=== PATIENT | male | born 1980 | race Caucasian/White ===

== ENCOUNTER 2017-06-17 19:02 | Inpatient (IN) | payer SELFPAY ==
[~2017-06-17] VITALS: Ht 170.2 cm; Wt 63.3 kg
[2017-06-17 19:02] VITALS: BP 115/84; PULSE 139; RESP 20; TEMP 98.7; O2SAT 99
[2017-06-17] MEDS ORDERED: SODIUM CHLOR 0.9% 1000 ML INJ 1,000 ML IV ONE ×4 (19:15→21:15)
[2017-06-17 19:28] LABS: AUTOMATED NEUTROPHIL # 8.8 TH/MM3 (1.8-7.7); BASOPHIL # 0.3 TH/MM3 (0-0.2); BASOPHIL % 2.6 % (0.0-2.0); HEMATOCRIT 51.7 % (39.0-51.0); LYMPH % 8.9 % (9.0-44.0); MEAN CELL VOLUME 89.5 FL (80.0-100.0); MEAN CORPUSCULAR HEMOGLOBIN 31.1 PG (27.0-34.0); MEAN CORPUSCULAR HGB CONC 34.7 % (32.0-36.0); MONO % 9.7 % (0.0-8.0); NEUT % 78.8 % (16.0-70.0); PLATELET COUNT 278 TH/MM3 (150-450); RED BLOOD COUNT 5.78 MIL/MM3 (4.50-5.90); WHITE BLOOD COUNT 11.2 TH/MM3 (4.0-11.0)
[2017-06-17 19:34] LABS: CHLORIDE 99 MEQ/L (98-107); HEMO FLAGS DIFF FINAL; POTASSIUM 3.8 MEQ/L (3.5-5.1); SODIUM (NA) 135 MEQ/L (136-145)
[2017-06-17 19:38] LABS: ANION GAP 12 MEQ/L (5-15); BICARBONATE 23.8 MEQ/L (21.0-32.0); BLOOD UREA NITROGEN 39 MG/DL (7-18)
[2017-06-17 19:41] LABS: ALT (GPT) 35 U/L (12-78); AST (GOT) 53 U/L (15-37); GLOMERULAR FILTRATION RATE 32 ML/MIN (>89)
[2017-06-17 19:44] LABS: ALKALINE PHOSPHATASE 66 U/L (45-117)
[2017-06-17 19:55] LABS: CREATINE KINASE 1369 U/L (39-308)
[2017-06-17 20:05] VITALS: BP 142/85; PULSE 112; RESP 18; O2SAT 96
--- NOTE | 2017-06-17 20:08 | PD ---
HPI Chief Complaint: Numbness/Tingling Time Seen by Provider: 19:12 Travel History International Travel<30 days: No Contact w/Intl Traveler<30days: No Traveled to known affect area: No History of Present Illness HPI This 37-year-old male presents by ambulance. He says he was cramping all over his body. He was working in the heat. 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 He started cramping around 10:00 this morning but tried to keep working. He was drinking a bit but he has not urinated once today. He has a history of ADHD and he says he takes Seroquel. PFSH Past Medical History Heart Rhythm Problems: Yes (SVT WHILE ON COCAINE) Cardiovascular Problems: Yes Diminished Hearing: No Inguinal Hernia: Yes Medical other: Yes (meningitis in 1996) Myocardial Infarction: Yes ([place] 2003) Tetanus Vaccination: Unknown Influenza Vaccination: No Past Surgical History Surgical History: No Previous Surgery Other Surgery: Yes (STOMACH SURGERY) Social History Alcohol Use: No Tobacco Use: Yes (1 ppd) Substance Use: Yes (cocaine, meth, marijuana - unable to recall last use; hx smoke crack) Allergies-Medications (Allergen,Severity, Reaction): Coded Allergies: No Known Allergies (Verified , 06/17/17) Reported Meds & Prescriptions Reported Meds & Active Scripts Active No Active Prescriptions or Reported Medications Review of Systems General / Constitutional: No: Fever, Chills Eyes: No: Diploplia, Blurred Vision HENT: Positive: Lightheadedness, No: Headaches Cardiovascular: No: Chest Pain or Discomfort Respiratory: Positive: Shortness of Breath Gastrointestinal: Positive: Nausea Genitourinary: Positive: Decreased Urinary Output Musculoskeletal: Positive: Myalgias, Arthralgias Skin: No Rash, No Itching Neurologic: Positive: Weakness, Dizziness Hematologic/Lymphatic: No: Easy Bruising Physical Exam Narrative GENERAL: Well-developed male. Heart rate initially 140 SKIN: Focused skin assessment warm/dry. HEAD: Atraumatic. Normocephalic. EYES: Pupils equal and round. No scleral icterus. No injection or drainage. ENT: No nasal bleeding or discharge. Mucous membranes dry NECK: Trachea midline. No JVD. CARDIOVASCULAR: Regular rate and rhythm. No murmur appreciated. RESPIRATORY: No accessory muscle use. Clear to auscultation. Breath sounds equal bilaterally. GASTROINTESTINAL: Abdomen soft, non-tender, nondistended. Hepatic and splenic margins not palpable. MUSCULOSKELETAL: No obvious deformities. No clubbing. No cyanosis. No edema. NEUROLOGICAL: Awake and alert. No obvious cranial nerve deficits. Motor grossly within normal limits. Normal speech. PSYCHIATRIC: Appropriate mood and affect; insight and judgment normal. Data Data Last Documented VS Vital Signs Date Time Temp Pulse Resp B/P Pulse Ox O2 Delivery O2 Flow Rate FiO2 06/17/17 19:02 98.7 139 20 115/84 99 Orders Complete Blood Count With Diff (06/17/17 19:12) Comprehensive Metabolic Panel (06/17/17 19:12) Creatine Kinase (Cpk) (06/17/17 19:12) Troponin I (06/17/17 19:12) Urinalysis - C+S If Indicated (06/17/17 19:12) Sodium Chlor 0.9% 1000 Ml Inj (Ns 1000 M (06/17/17 19:15) Sodium Chlor 0.9% 1000 Ml Inj (Ns 1000 M (06/17/17 19:15) Sodium Chlor 0.9% 1000 Ml Inj (Ns 1000 M (06/17/17 19:45) Drug Screen, Random Urine (06/17/17 19:44) CKMB (06/17/17 19:10) CKMB% (06/17/17 19:10) Labs Laboratory Tests Test 06/17/17 19:10 White Blood Count 11.2 TH/MM3 Red Blood Count 5.78 MIL/MM3 Hemoglobin 17.9 GM/DL Hematocrit 51.7 % Mean Corpuscular Volume 89.5 FL Mean Corpuscular Hemoglobin 31.1 PG Mean Corpuscular Hemoglobin 34.7 % Concent Red Cell Distribution Width 13.0 % Platelet Count 278 TH/MM3 Mean Platelet Volume 7.9 FL Neutrophils (%) (Auto) 78.8 % Lymphocytes (%) (Auto) 8.9 % Monocytes (%) (Auto) 9.7 % Eosinophils (%) (Auto) 0.0 % Basophils (%) (Auto) 2.6 % Neutrophils # (Auto) 8.8 TH/MM3 Lymphocytes # (Auto) 1.0 TH/MM3 Monocytes # (Auto) 1.1 TH/MM3 Eosinophils # (Auto) 0.0 TH/MM3 Basophils # (Auto) 0.3 TH/MM3 CBC Comment DIFF FINAL Differential Comment Sodium Level 135 MEQ/L Potassium Level 3.8 MEQ/L Chloride Level 99 MEQ/L Carbon Dioxide Level 23.8 MEQ/L Anion Gap 12 MEQ/L Blood Urea Nitrogen 39 MG/DL Creatinine 2.30 MG/DL Estimat Glomerular Filtration 32 ML/MIN Rate Random Glucose 121 MG/DL Calcium Level 8.9 MG/DL Total Bilirubin 1.0 MG/DL Aspartate Amino Transf 53 U/L (AST/SGOT) Alanine Aminotransferase 35 U/L (ALT/SGPT) Alkaline Phosphatase 66 U/L Total Creatine Kinase 1369 U/L Troponin I LESS THAN 0.02 NG/ML Total Protein 8.6 GM/DL Albumin 4.7 GM/DL [facility] Medical Decision Making Medical Screen Exam Complete: Yes Emergency Medical Condition: Yes Medical Record Reviewed: Yes Differential Diagnosis Differential includes heat cramps, dehydration, exhaustion Narrative Course Patient has been started on IV fluids. His BUNs is come back at 39 with creatinine of 2.3. He has no known history of kidney illness. His CPK is 1369 Diagnosis Primary Impression: Dehydration Additional Impressions: Acute kidney injury Rhabdomyolysis Qualified Code: M62.82 - Non-traumatic rhabdomyolysis Scripts No Active Prescriptions or Reported Meds Aiden Jose MD Jun 17, 2017 20:08
[2017-06-17 20:09] LABS: CKMB 7.2 NG/ML (0.5-3.6)
[2017-06-17 21:15] VITALS: BP 131/80; PULSE 114; RESP 17; TEMP 98.5; O2SAT 96
[2017-06-17 21:19] LABS: BLOOD, URINE SMALL (NEG); GLUCOSE,URINE NEG (NEG); KETONE, URINE TRACE mg/dL (NEG); NITRITE,URINE NEG (NEG); PH, URINE 5.5 (5.0-8.5)
[2017-06-17 21:21] LABS: URINE COLOR AMBER (YELLW/STRAW)
[2017-06-17 21:25] LABS: MUCUS URINE FEW /lpf (OCC); WHITE BLOOD CELL CAST, URINE 0-2 /lpf
[2017-06-17 21:26] LABS: BACTERIA, URINE FEW /hpf; COMMENT (UR) CULT NOT INDICATED; CULTURE IF INDICATED CULT NOT INDICATED; RBC, URINE 0-3 /hpf (0-3); SQUAMOUS EPITHELIAL CELL URINE 0-5 /hpf (0-5)
[2017-06-17] MEDS ORDERED: SENNOSIDES 8.6 MG TAB PO PRN (21:45)
[2017-06-17] MEDS ORDERED: SODIUM CHLORIDE 0.9% FLUSH 10 ML FLUSH IV FLUSH PRN (21:45)
[2017-06-17] MEDS ORDERED: ACETAMINOPHEN 325 MG TAB PO PRN (21:45)
[2017-06-17] MEDS ORDERED: MAGNESIUM HYDROXIDE SUSP 30 ML CUP PO PRN (21:45)
[2017-06-17] MEDS ORDERED: BISACODYL 10 MG SUPP RECTAL PRN (21:45)
[2017-06-17] MEDS ORDERED: MORPHINE SULFATE 4 MG/ML INJ IV PRN (21:45)
[2017-06-17] MEDS ORDERED: ACETAMINOPHEN/HYDROcodone 325 MG/5 MG TAB PO PRN (21:45)
[2017-06-17] MEDS ORDERED: LACTULOSE SYRUP 20 GM/30 ML CUP PO PRN (21:45)
[2017-06-17] MEDS ORDERED: ONDANSETRON HCL 4 MG/2 ML VIAL IVP PRN (21:45)
[2017-06-17] MEDS: SODIUM CHLOR 0.9% 1000 ML INJ 1,000 ML IV SCH (22:04)
[2017-06-17 23:33] VITALS: BP 131/70; PULSE 111; RESP 18; O2SAT 96
[2017-06-18 00:20] LABS: CREATINE KINASE 1219 U/L (39-308)
[2017-06-18 00:32] LABS: CKMB 8.6 NG/ML (0.5-3.6)
[2017-06-18 01:51] VITALS: BP 135/92; PULSE 105; RESP 16; TEMP 98.7; O2SAT 96
[2017-06-18] MEDS: SODIUM CHLOR 0.9% 1000 ML INJ 1,000 ML IV SCH ×2 (04:18→09:43)
[2017-06-18 04:54] VITALS: BP 130/87; PULSE 100; RESP 18; TEMP 98.3; O2SAT 98
[2017-06-18 07:09] LABS: AUTOMATED NEUTROPHIL # 3.8 TH/MM3 (1.8-7.7); BASOPHIL % 0.6 % (0.0-2.0); EOSINOPHIL # 0.1 TH/MM3 (0-0.4); HEMATOCRIT 40.1 % (39.0-51.0); HEMO FLAGS DIFF FINAL; LYMPH % 27.2 % (9.0-44.0); LYMPHOCYTE # 1.8 TH/MM3 (1.0-4.8); MEAN CELL VOLUME 90.8 FL (80.0-100.0); MEAN CORPUSCULAR HEMOGLOBIN 31.5 PG (27.0-34.0); MEAN CORPUSCULAR HGB CONC 34.7 % (32.0-36.0); NEUT % 58.2 % (16.0-70.0); PLATELET COUNT 195 TH/MM3 (150-450); RED BLOOD COUNT 4.42 MIL/MM3 (4.50-5.90); RED CELL DISTRIBUTION WIDTH 13.1 % (11.6-17.2); WHITE BLOOD COUNT 6.5 TH/MM3 (4.0-11.0)
[2017-06-18 07:41] LABS: ALKALINE PHOSPHATASE 41 U/L (45-117); ALT (GPT) 27 U/L (12-78); ANION GAP 7 MEQ/L (5-15); AST (GOT) 47 U/L (15-37); BICARBONATE 23.2 MEQ/L (21.0-32.0); BLOOD UREA NITROGEN 26 MG/DL (7-18); CALCIUM-PROTEIN CORRECTED 8.2 MG/DL (8.5-10.1); CHLORIDE 111 MEQ/L (98-107); GLOMERULAR FILTRATION RATE 102 ML/MIN (>89); SODIUM (NA) 141 MEQ/L (136-145)
[2017-06-18 07:55] LABS: CREATINE KINASE 1133 U/L (39-308)
[2017-06-18 08:21] LABS: CKMB 9.5 NG/ML (0.5-3.6)
[2017-06-18 08:22] VITALS: BP 121/80; PULSE 81; RESP 19; TEMP 98.7; O2SAT 94
[2017-06-18] MEDS ORDERED: SODIUM CHLORIDE 0.9% FLUSH 10 ML FLUSH IV FLUSH SCH (09:00)
[2017-06-18] MEDS ORDERED: DOCUSATE SODIUM 50 MG/SENNA 8.6 MG TAB PO SCH (09:00)
[2017-06-18] MEDS ORDERED: HEPARIN SODIUM - SQ 10,000 UNITS/ML VIAL SQ SCH (09:00)
--- NOTE | 2017-06-18 10:57 | HHI.HP ---
[facility] Service [facility] Primary Care Physician No Primary Care Physician Admission Diagnosis DEHYDRATION, ACUTE KIDNEY INJURY Diagnoses: (1) Rhabdomyolysis Diagnosis: Principal (2) Acute kidney injury Diagnosis: Principal (3) Polysubstance abuse Diagnosis: Principal Chief Complaint: Arm and hand cramping and pain Travel History International Travel<30 Days: No Contact w/Intl Traveler <30 Da: No Traveled to Known Affected Are: No History of Present Illness Written by Sharad Diaz, acting as scribe for Dr. Simms on 06/18/17 at 10 :45. 37-year-old male with known history of arrhythmia, meningitis, myocardial infarction, ADHD, IV drug use, polysubstance abuse who presented to hospital because of one day history of muscle cramps. When asking the patient was taken to the hospital he states that he came because he was dehydrated had to specifically ask symptoms in order to get him to elicit any symptoms otherwise he is here the hospital. His veins problem states that he is withdrawing from drugs and he has muscle cramps and pain in his hands and arms. Patient had workup done emergency department found to have rhabdomyolysis with associated acute kidney injury. Follow-up study show significant improvement at this time. With kidney function back to normal. Patient actually admits that he continue to use crystal meth, cocaine, marijuana that he snorts and smokes. Patient was counseled extensively on follow-up with [facility] for continued treatment of his addiction. Patient clinically improving at this time. Patient states that he has had intermittent blurred vision, chest discomfort, muscle aches, shortness of breath. Patient was admitted for treatment of his rhabdomyolysis with acute kidney injury. Review of Systems Eyes: COMPLAINS OF: Blurred vision Respiratory: COMPLAINS OF: Shortness of breath Cardiovascular: COMPLAINS OF: Chest pain Except as stated in HPI: all other systems reviewed are Neg Past Family Social History Past Medical History History myocardial infarction secondary to drug use History of arrhythmia secondary to drug use Attention deficit disorder Polysubstance abuse History of IV drug use Past Surgical History Left inguinal hernia repair Reported Medications Reported Meds & Active Scripts Active No Active Prescriptions or Reported Medications Allergies: Coded Allergies: No Known Allergies (Verified , 06/17/17) Family History Reviewed and patient states that he does not like to talk about his parents. States that his mother is alive at age 55, he does not know the age of his father, his grandfather had lung cancer Social History Patient states that he is down to 45 cigarettes daily and he is been smoking since 16 years old. He states that he drinks alcohol a few times a week, he will not give quantity which he drinks he states that he loses count. Patient continues use crystal meth in which he smokes and snorts it. He also uses cocaine in which he smokes it. He also does use marijuana on a regular basis. He does have history of IV drug use but he would not elicit the last time he used. Physical Exam Vital Signs Vital Signs Date Time Temp Pulse Resp B/P Pulse Ox O2 Delivery O2 Flow Rate FiO2 06/18/17 08:22 98.7 81 19 121/80 94 06/18/17 04:54 98.3 100 18 130/87 98 06/18/17 01:51 98.7 105 16 135/92 96 06/17/17 23:33 111 18 131/70 96 Room Air 06/17/17 21:15 98.5 114 17 131/80 96 Room Air 06/17/17 20:05 112 18 142/85 96 Room Air 06/17/17 19:02 98.7 139 20 115/84 99 Physical Exam GENERAL: Well-developed, well-nourished, in no acute distress. alert and orientated HEENT: Head is normocephalic without any lesions or masses noted. Facial features are symmetric. Eyes: Pupils equal round reactive to light. Extraocular muscles are intact. Conjunctivae were clear. Oropharyngeal: Pharynx without any erythema edema. Tongue is midline without deviation. Buccal mucosa is moist without any masses or lesions NECK: Supple without any masses. Trachea midline no deviation. No JVD, no bruits are appreciated CARDIAC: Regular rhythm, regular rate. S1/S2 are heard. No murmurs gallops or rubs. LUNGS: Clear to auscultation bilaterally. No wheeze, rhonchi or rales. No use of accessory muscles on inspiration or expiration. ABDOMEN: Soft, nontender. Nondistended. Bowel sounds heard in all 4 quadrants. No organomegaly or masses. Negative rebound, negative guarding EXTREMITIES: No edema, pulses are equal bilaterally. No cyanosis or clubbing NEUROLOGY: Mood and affect appear appropriate. Cranial nerves II through XII grossly intact. Muscle strength 5/5 in upper and lower extremities bilaterally. Deep tendon reflexes are 2+ in upper and lower extremities bilaterally. Laboratory Laboratory Tests Test 06/17/17 06/17/17 06/17/17 06/18/17 19:10 21:14 23:43 06:30 White Blood Count 11.2 6.5 Red Blood Count 5.78 4.42 Hemoglobin 17.9 13.9 Hematocrit 51.7 40.1 Mean Corpuscular Volume 89.5 90.8 Mean Corpuscular Hemoglobin 31.1 31.5 Mean Corpuscular Hemoglobin 34.7 34.7 Concent Red Cell Distribution Width 13.0 13.1 Platelet Count 278 195 Mean Platelet Volume 7.9 7.9 Neutrophils (%) (Auto) 78.8 58.2 Lymphocytes (%) (Auto) 8.9 27.2 Monocytes (%) (Auto) 9.7 13.0 Eosinophils (%) (Auto) 0.0 1.0 Basophils (%) (Auto) 2.6 0.6 Neutrophils # (Auto) 8.8 3.8 Lymphocytes # (Auto) 1.0 1.8 Monocytes # (Auto) 1.1 0.8 Eosinophils # (Auto) 0.0 0.1 Basophils # (Auto) 0.3 0.0 CBC Comment DIFF FINAL DIFF FINAL Differential Comment Sodium Level 135 141 Potassium Level 3.8 4.0 Chloride Level 99 111 Carbon Dioxide Level 23.8 23.2 Anion Gap 12 7 Blood Urea Nitrogen 39 26 Creatinine 2.30 0.85 Estimat Glomerular Filtration 32 102 Rate Random Glucose 121 87 Calcium Level 8.9 7.3 Total Bilirubin 1.0 1.0 Aspartate Amino Transf 53 47 (AST/SGOT) Alanine Aminotransferase 35 27 (ALT/SGPT) Alkaline Phosphatase 66 41 Total Creatine Kinase 1369 1219 1133 Creatine Kinase MB 7.2 8.6 9.5 Creatine Kinase MB % 0.5 0.7 0.8 Troponin I LESS THAN 0.02 LESS THAN 0.02 LESS THAN 0.02 Total Protein 8.6 5.4 Albumin 4.7 2.9 Urine Color BETHANY Urine Turbidity CLEAR Urine pH 5.5 Urine Specific [place] 1.023 Urine Protein 30 Urine Glucose (UA) NEG Urine Ketones TRACE Urine Occult Blood SMALL Urine Nitrite NEG Urine Bilirubin NEG Urine Leukocyte Esterase NEG Urine RBC 0-3 Urine WBC 3-5 Urine Squamous Epithelial 0-5 Cells Urine Bacteria FEW Urine Hyaline Casts 25-49 Urine Fine Granular Casts 3-5 Urine White Blood Cell Casts 0-2 Urine Mucus FEW Microscopic Urinalysis Comment CULT NOT INDICATED Urine Opiates Screen NEG Urine Barbiturates Screen NEG Urine Amphetamines Screen POS Urine Benzodiazepines Screen NEG Urine Cocaine Screen POS Urine Cannabinoids Screen POS Protein Corrected Calcium 8.2 Result Diagram: 06/18/17 0630 06/18/17 0630 Assessment and Plan Assessment and Plan Rhabdomyolysis Etiology could be multifactorial with amphetamine use, cocaine use, dehydration , CPK is responding nicely and trending down appropriately Continue IV fluids Acute renal failure Significantly improved with IV hydration, renal functions have already returned to normal Polysubstance abuse Patient openly admits alcohol abuse, crystal meth abuse, cocaine abuse, marijuana abuse. Patient was counseled extensively on outpatient follow-up and management by [facility] DVT prevention Subcutaneous heparin Discharge disposition Discharge home in stable condition if CPK continues to improve Activity: Ad ruth. patient was instructed not to work for at least one week Diet: Regular diet, increase by mouth water intake Medications per medication reconciliation Follow-up with primary medical doctor one week, patient instructed to present to [facility] for detox and outpatient treatment This note was transcribed by scribe. Nation, Dr. Sonia Simms personally performed the history, physical exam, and medical decision making; and confirmed the accuracy of the information in the transcribed note. Authenticated by Dr. Sonai Simms on 06/18/17 at 11:03. Physician Certification 2 Midnight Certification Type: Admission for Inpatient Services Order for Inpatient Services The services are ordered in accordance with Medicare regulations or non- Medicare payer requirements, as applicable. In the case of services not specified as inpatient-only, they are appropriately provided as inpatient services in accordance with the 2-midnight benchmark. Estimated LOS (days): 1 days is the estimated time the patient will need to remain in the hospital, assuming treatment plan goals are met and no additional complications. Post-Hospital Plan: Home Problem Qualifiers (1) Rhabdomyolysis: Qualified Code: M62.82 - Non-traumatic rhabdomyolysis Sharad Diaz Jun 18, 2017 10:57 Sonia Simms MD Jun 18, 2017 11:03
[2017-06-18 12:35] VITALS: BP 119/83; PULSE 88; RESP 19; TEMP 96.7; O2SAT 97
[2017-06-18 12:38] LABS: CKMB 8.3 NG/ML (0.5-3.6)
== END 2017-06-18 13:24 | disposition home or self-care (01) | DRG 683 ==
LOC: PHED 19:02 → PHEDA 21:40 → PH3B 23:51
PROVIDERS: ADMIT Family Medicine; ATTEND Family Medicine
DX: N17.9 Acute kidney failure, unspecified (principal); M62.82 Rhabdomyolysis; F19.239 Other psychoactive substance dependence with withdrawal, unspecified; E86.0 Dehydration; F90.9 Attention-deficit hyperactivity disorder, unspecified type; I25.2 Old myocardial infarction; F17.210 Nicotine dependence, cigarettes, uncomplicated; F10.10 Alcohol abuse, uncomplicated; F12.10 Cannabis abuse, uncomplicated; F14.10 Cocaine abuse, uncomplicated; Z23 Encounter for immunization
CPT/HCPCS: 80053; 80307; 81001; 82550; 82552; 84484; 85025; 96360; 96361; J2270; J7030